=== PATIENT | female | born 1970 | race African-American/Black ===

== ENCOUNTER 2021-06-09 12:50 | Inpatient (IN) ==
[2021-06-09] MEDS ORDERED: hydrALAZINE 20 MG/1 ML VIAL IV STA (13:31)
[2021-06-09] MEDS ORDERED: ONDANSETRON 4 MG/2 ML VIAL IV STA (13:57)
[2021-06-09] MEDS ORDERED: HYDROmorphone 2 MG/1 ML VIAL IV STA (13:57)
[2021-06-09] MEDS ORDERED: GLUCAGON 1 MG VIAL IM PRN (14:02)
[2021-06-09] MEDS ORDERED: MORPHINE 2 MG/1 ML SYRINGE IV PRN (14:02)
[2021-06-09] MEDS ORDERED: DEXTROSE 50% 25 GM/50 ML VIAL IV PRN (14:02)
[2021-06-09] MEDS ORDERED: hydrALAZINE 20 MG/1 ML VIAL IV PRN (14:08)
[2021-06-09] MEDS ORDERED: PHENYTOIN ER 100 MG CAPSULE PO SCH (14:30)
[2021-06-09 14:41] LABS: Basophils % 0.5 % (0.0-0.8); Hemoglobin 7.8 GM/DL (12.0-16.0); Immature Granulocytes % 0.6 %; Immature Granulocytes Absolute 0.05 #; Lymphocytes # 0.7 10*3/uL (1.4-4.0); Lymphocytes % 9.1 % (21.3-54.2); Mean Corpuscular HGB Conc 31.2 GM/DL (32-36); Mean Corpuscular Volume 103.7 FL (87-102); Mean Platelet Volume 11.3 FL (9.6-12.0); Monocytes % 9.5 % (1.7-12.7); Neutrophils % 80.3 % (38.7-73.9); Platelet Count 162 T/CUMM (130-400); Red Blood Count 2.41 MC/CUMM (3.8-5.5); Red Cell Distribution Width 18.5 % (9.3-17.3); White Blood Count 8.1 T/CUMM (4-12)
[2021-06-09] MEDS: carvediloL 12.5 MG TABLET PO SCH ×2 (15:26→22:15)
[2021-06-09] MEDS ORDERED: SODIUM CHLORIDE 0.9% 1,000 ML IV PRN ×2 (16:04→22:21)
[2021-06-09 19:02] LABS: Hematocrit 23.1 VOL% (35.7-47.0); Hemoglobin 7.1 GM/DL (12.0-16.0)
[2021-06-09] MEDS: ONDANSETRON 4 MG/2 ML VIAL IV PRN (21:02)
[2021-06-09] MEDS: PROMETHAZINE INJ 25 MG in SODIUM CHLORIDE 0.9% 50 ML IV PRN (21:20)
[2021-06-09 21:54] LABS: Calcium 8.3 MG/DL (8.5-10.1); Osmolality,Calculated 279.8 MOS/KG (273-304); Potassium 4.5 MMOL/L (3.5-5.1)
[2021-06-09 22:05] LABS: Hematocrit 21.4 VOL% (35.7-47.0); Hemoglobin 6.6 GM/DL (12.0-16.0)
[2021-06-09] MEDS: PHENYTOIN ER 100 MG CAPSULE PO SCH (22:15)
[2021-06-09] MEDS: HYDROmorphone 2 MG/1 ML VIAL IV PRN (22:40)
[2021-06-10] MEDS: HYDROmorphone 2 MG/1 ML VIAL IV PRN ×5 (01:50→22:18)
[2021-06-10] MEDS: LEVOTHYROXINE 125 MCG TABLET PO SCH (05:42)
[2021-06-10 06:52] LABS: Basophils # 0.1 10*3/uL (0.0-0.2); Basophils % 0.3 % (0.0-0.8); Hematocrit 26.8 VOL% (35.7-47.0); Immature Granulocytes % 0.9 %; Immature Granulocytes Absolute 0.14 #; Lymphocytes # 0.7 10*3/uL (1.4-4.0); Lymphocytes % 4.8 % (21.3-54.2); Mean Corpuscular HGB Conc 32.1 GM/DL (32-36); Mean Corpuscular Volume 96.8 FL (87-102); Mean Platelet Volume 11.3 FL (9.6-12.0); Monocytes % 9.1 % (1.7-12.7); Neutrophils % 84.9 % (38.7-73.9); Platelet Count 140 T/CUMM (130-400); Red Blood Count 2.77 MC/CUMM (3.8-5.5); Red Cell Distribution Width 18.6 % (9.3-17.3)
[2021-06-10 06:54] LABS: White Blood Count 14.8 T/CUMM (4-12)
[2021-06-10 06:55] LABS: Hemoglobin 8.6 GM/DL (12.0-16.0)
[2021-06-10 07:12] LABS: Calcium 8.5 MG/DL (8.5-10.1); Potassium 4.8 MMOL/L (3.5-5.1); Thyroid Stimulating Hormone 1.7 uIU/ml (0.358-3.74)
[2021-06-10 07:21] LABS: Band Neutrophils 2 % (0-10); Lymphocytes 3 % (20-55); Segmented Neutrophils 85 % (50-85); Total Cells Counted 100
[2021-06-10 07:22] LABS: Anisocytosis 1+; Hypochromasia 1+; Microcytosis 1+
[2021-06-10 07:23] LABS: Platelet Estimate Adequate
[2021-06-10] MEDS ORDERED: NIFEdipine 10 MG CAPSULE PO PRN (08:43)
[2021-06-10] MEDS ORDERED: TERAZOSIN 2 MG CAPSULE PO SCH (09:00)
[2021-06-10] MEDS: PHENYTOIN ER 100 MG CAPSULE PO SCH ×2 (09:30→21:25)
[2021-06-10] MEDS: TERAZOSIN 1 MG CAPSULE PO SCH ×2 (09:30→21:25)
[2021-06-10] MEDS: carvediloL 12.5 MG TABLET PO SCH ×2 (09:30→21:25)
[2021-06-10] MEDS: predniSONE 5 MG TABLET PO SCH ×2 (09:31→21:43)
[2021-06-10] MEDS: PANTOPRAZOLE 40 MG TABLET PO SCH (09:31)
[2021-06-10 12:40] LABS: Basophils # 0.1 10*3/uL (0.0-0.2); Basophils % 0.4 % (0.0-0.8); Hematocrit 24.1 VOL% (35.7-47.0); Hemoglobin 7.8 GM/DL (12.0-16.0); Immature Granulocytes % 0.9 %; Immature Granulocytes Absolute 0.15 #; Lymphocytes # 0.5 10*3/uL (1.4-4.0); Lymphocytes % 3.2 % (21.3-54.2); Mean Corpuscular HGB Conc 32.4 GM/DL (32-36); Mean Corpuscular Volume 97.6 FL (87-102); Mean Platelet Volume 10.6 FL (9.6-12.0); Neutrophils % 87.5 % (38.7-73.9); Platelet Count 132 T/CUMM (130-400); Red Blood Count 2.47 MC/CUMM (3.8-5.5); Red Cell Distribution Width 18.6 % (9.3-17.3); White Blood Count 16.4 T/CUMM (4-12)
[2021-06-10] MEDS: CALCIUM ACETATE 667 MG CAPSULE PO SCH ×2 (12:56→16:06)
[2021-06-10 13:19] LABS: Anisocytosis 1+; Lymphocytes 5 % (20-55); Reactive Lymphocytes Few; Segmented Neutrophils 87 % (50-85); Total Cells Counted 100
[2021-06-10 13:20] LABS: Hypochromasia Slight; Platelet Estimate Adequate
[2021-06-10 17:08] LABS: Basophils % 0.2 % (0.0-0.8); Hematocrit 22.7 VOL% (35.7-47.0); Hemoglobin 7.2 GM/DL (12.0-16.0); Immature Granulocytes Absolute 0.17 #; Lymphocytes # 0.7 10*3/uL (1.4-4.0); Lymphocytes % 3.9 % (21.3-54.2); Mean Corpuscular HGB Conc 31.7 GM/DL (32-36); Mean Corpuscular Volume 99.1 FL (87-102); Mean Platelet Volume 10.9 FL (9.6-12.0); Monocytes % 7.1 % (1.7-12.7); Neutrophils % 87.8 % (38.7-73.9); Platelet Count 131 T/CUMM (130-400); Red Blood Count 2.29 MC/CUMM (3.8-5.5); Red Cell Distribution Width 18.6 % (9.3-17.3); White Blood Count 17.4 T/CUMM (4-12)
[2021-06-10 17:26] LABS: Lymphocytes 6 % (20-55); Segmented Neutrophils 90 % (50-85); Total Cells Counted 100
[2021-06-10 17:27] LABS: Anisocytosis 1+; Hypochromasia 1+; Platelet Estimate Adequate; Polychromasia Few
[2021-06-10 23:37] LABS: Basophils # 0.1 10*3/uL (0.0-0.2); Basophils % 0.3 % (0.0-0.8); Hematocrit 21.1 VOL% (35.7-47.0); Hemoglobin 6.6 GM/DL (12.0-16.0); Immature Granulocytes Absolute 0.15 #; Lymphocytes # 0.7 10*3/uL (1.4-4.0); Lymphocytes % 4.5 % (21.3-54.2); Mean Corpuscular HGB Conc 31.3 GM/DL (32-36); Mean Corpuscular Volume 98.1 FL (87-102); Mean Platelet Volume 10.4 FL (9.6-12.0); Monocytes % 7.4 % (1.7-12.7); Neutrophils % 86.8 % (38.7-73.9); Platelet Count 128 T/CUMM (130-400); Red Blood Count 2.15 MC/CUMM (3.8-5.5); Red Cell Distribution Width 18.5 % (9.3-17.3); White Blood Count 15.4 T/CUMM (4-12)
[2021-06-10] MEDS ORDERED: SODIUM CHLORIDE 0.9% 1,000 ML IV PRN (23:39)
[2021-06-11 01:37] LABS: Lymphocytes 5 % (20-55); Segmented Neutrophils 89 % (50-85); Total Cells Counted 100
[2021-06-11 01:38] LABS: Hypochromasia 1+; Microcytosis 1+; Platelet Estimate Normal
[2021-06-11] MEDS: LEVOTHYROXINE 125 MCG TABLET PO SCH (05:40)
[2021-06-11] MEDS: HYDROmorphone 2 MG/1 ML VIAL IV PRN ×4 (07:16→23:36)
[2021-06-11 09:06] LABS: Basophils % 0.2 % (0.0-0.8); Eosinophils % 0.1 % (0.00-10.9); Hematocrit 26.5 VOL% (35.7-47.0); Immature Granulocytes % 1.1 %; Immature Granulocytes Absolute 0.17 #; Lymphocytes # 0.5 10*3/uL (1.4-4.0); Lymphocytes % 3.4 % (21.3-54.2); Mean Corpuscular HGB Conc 31.3 GM/DL (32-36); Mean Corpuscular Volume 93.6 FL (87-102); Mean Platelet Volume 11.6 FL (9.6-12.0); Monocytes % 6.5 % (1.7-12.7); Neutrophils % 88.7 % (38.7-73.9); Platelet Count 119 T/CUMM (130-400); Red Blood Count 2.83 MC/CUMM (3.8-5.5); Red Cell Distribution Width 19.1 % (9.3-17.3); White Blood Count 15.8 T/CUMM (4-12)
[2021-06-11 09:07] LABS: Hemoglobin 8.3 GM/DL (12.0-16.0)
[2021-06-11 09:22] LABS: Hypochromasia 1+; Lymphocytes 4 % (20-55); Microcytosis 1+; Platelet Estimate Decreased; Segmented Neutrophils 91 % (50-85); Total Cells Counted 100
[2021-06-11 09:32] LABS: Albumin 2.5 G/DL (3.4-5.0); Bilirubin,Total 0.5 MG/DL (0.20-1.00); Calcium 8.2 MG/DL (8.5-10.1); Osmolality,Calculated 278.2 MOS/KG (273-304); Parathyroid Hormone Intact 246.6 PG/ML (18.4-80.1); Potassium 4.6 MMOL/L (3.5-5.1); Total Protein 6.3 G/DL (6.4-8.2)
[2021-06-11 09:33] LABS: % Iron Saturation 10.1 % (18-50); Ferritin 1297.8 ng/ml (8-252)
[2021-06-11 09:37] LABS: Folate 3.68 NG/ML (5.38-24.0); Vitamin B12 314 PG/ML (211-911)
[2021-06-11] MEDS: TERAZOSIN 1 MG CAPSULE PO SCH ×2 (10:07→20:29)
[2021-06-11] MEDS: CALCIUM ACETATE 667 MG CAPSULE PO SCH ×3 (10:07→18:03)
[2021-06-11] MEDS: predniSONE 5 MG TABLET PO SCH ×2 (10:07→20:31)
[2021-06-11] MEDS: PHENYTOIN ER 100 MG CAPSULE PO SCH ×2 (10:08→20:30)
[2021-06-11] MEDS: PANTOPRAZOLE 40 MG TABLET PO SCH (10:08)
[2021-06-11] MEDS: carvediloL 12.5 MG TABLET PO SCH ×2 (10:08→20:30)
[2021-06-11 10:14] LABS: Sedimentation Rate-Westergren 78 MM/HR (0-20)
[2021-06-11] MEDS ORDERED: SODIUM CHLORIDE 0.9% 1,000 ML IV PRN (10:39)
[2021-06-11] MEDS: ONDANSETRON 4 MG/2 ML VIAL IV PRN (12:17)
[2021-06-11] MEDS ORDERED: EPOETIN ALFA-EPBX 10,000 UNIT/ML VIAL IV PRN (12:48)
[2021-06-11 14:59] LABS: Basophils % 0.2 % (0.0-0.8); Hematocrit 25.7 VOL% (35.7-47.0); Hemoglobin 8.3 GM/DL (12.0-16.0); Immature Granulocytes % 0.8 %; Immature Granulocytes Absolute 0.11 #; Lymphocytes # 0.5 10*3/uL (1.4-4.0); Lymphocytes % 3.4 % (21.3-54.2); Mean Corpuscular HGB Conc 32.3 GM/DL (32-36); Mean Corpuscular Volume 92.4 FL (87-102); Mean Platelet Volume 10.4 FL (9.6-12.0); Neutrophils % 91.6 % (38.7-73.9); Platelet Count 132 T/CUMM (130-400); Red Blood Count 2.78 MC/CUMM (3.8-5.5); Red Cell Distribution Width 19.2 % (9.3-17.3); White Blood Count 13.4 T/CUMM (4-12)
[2021-06-11 15:29] LABS: Band Neutrophils 1 % (0-10); Lymphocytes 2 % (20-55); Segmented Neutrophils 97 % (50-85); Total Cells Counted 100
[2021-06-11 15:30] LABS: Anisocytosis 1+; Macrocytosis 1+; Microcytosis 1+; Platelet Estimate Adequate; Polychromasia Slight
[2021-06-11 19:29] LABS: Basophils % 0.1 % (0.0-0.8); Hematocrit 26.7 VOL% (35.7-47.0); Hemoglobin 8.5 GM/DL (12.0-16.0); Immature Granulocytes % 0.9 %; Immature Granulocytes Absolute 0.13 #; Lymphocytes # 0.6 10*3/uL (1.4-4.0); Lymphocytes % 3.9 % (21.3-54.2); Mean Corpuscular HGB Conc 31.8 GM/DL (32-36); Mean Corpuscular Volume 93.4 FL (87-102); Mean Platelet Volume 10.1 FL (9.6-12.0); Neutrophils % 90.1 % (38.7-73.9); Platelet Count 125 T/CUMM (130-400); Red Blood Count 2.86 MC/CUMM (3.8-5.5); Red Cell Distribution Width 19.5 % (9.3-17.3)
[2021-06-12] MEDS: HYDROmorphone 2 MG/1 ML VIAL IV PRN ×3 (05:45→20:50)
[2021-06-12] MEDS: LEVOTHYROXINE 125 MCG TABLET PO SCH (05:57)
[2021-06-12 06:09] LABS: Albumin 2.4 G/DL (3.4-5.0); Bilirubin,Total 0.5 MG/DL (0.20-1.00); Calcium 8.6 MG/DL (8.5-10.1); Osmolality,Calculated 273.1 MOS/KG (273-304); Potassium 4.3 MMOL/L (3.5-5.1); Total Protein 6.6 G/DL (6.4-8.2)
[2021-06-12] MEDS: carvediloL 12.5 MG TABLET PO SCH (09:15)
[2021-06-12] MEDS: PHENYTOIN ER 100 MG CAPSULE PO SCH (09:16)
[2021-06-12] MEDS: CALCIUM ACETATE 667 MG CAPSULE PO SCH ×3 (09:37→18:39)
[2021-06-12] MEDS: TERAZOSIN 1 MG CAPSULE PO SCH (09:38)
[2021-06-12] MEDS: PANTOPRAZOLE 40 MG TABLET PO SCH (09:38)
[2021-06-12] MEDS: predniSONE 5 MG TABLET PO SCH (09:38)
[2021-06-12 09:49] LABS: Hemoglobin A1 (Alkaline) 97.5 % (96.5-98.5); Hemoglobin A2 (Alkaline) 2.5 % (1.5-3.5)
[2021-06-12] MEDS ORDERED: MIDAZOLAM 2 MG/2 ML VIAL ONE (12:48)
[2021-06-12] MEDS ORDERED: fentaNYL 100 MCG/2 ML VIAL ONE (12:48)
[2021-06-12] MEDS ORDERED: ROPIVACAINE 0.5% 30 ML VIAL ONE ×2 (12:50→14:55)
[2021-06-12] MEDS ORDERED: LIDOCAINE 1% 5 ML VIAL ONE (12:50)
[2021-06-12] MEDS ORDERED: PHENYLEPHRINE DRIP 20 MG/250 ML PREMIX IV ONE (12:50)
[2021-06-12] MEDS ORDERED: SODIUM CHLORIDE 0.9% 250 ML IV SCH (13:30)
[2021-06-12] MEDS ORDERED: DEXMEDETOMIDINE 200 MCG/2 ML VIAL ONE (14:07)
[2021-06-12] MEDS ORDERED: ALBUMIN 5% 12.5 GM/250 ML VIAL IV ONE (14:07)
[2021-06-12] MEDS ORDERED: CALCIUM CHLORIDE 1,000 MG/10 ML VIAL IV ONE ×2 (14:07→17:07)
[2021-06-12] MEDS ORDERED: KETAMINE 500 MG/10 ML VIAL ONE (14:24)
[2021-06-12] MEDS ORDERED: ALBUTEROL INHALER 18 GM INH ONE ×2 (14:25→14:26)
[2021-06-12] MEDS ORDERED: CLINDAMYCIN INJ 600 MG/50 ML PREMIX IV ONE (14:53)
[2021-06-12] MEDS ORDERED: DESMOPRESSIN 4 MCG/1 ML AMP IV ONE (15:00)
[2021-06-12] MEDS ORDERED: SEVOFLURANE 1 UNIT/15 MINUTE INH ONE ×3 (15:34→17:44)
[2021-06-12] MEDS ORDERED: ROCURONIUM 50 MG/5 ML VIAL IV ONE (15:57)
[2021-06-12 16:43] LABS: ABG HCO3 25.3 MMOL/L (20-26); ABG Oxygen Saturation 97.9 % (95-100); ABG PCO2 33.9 MM HG (35-48); ABG PO2 104.5 MM HG (80-95); ABG TCO2 26.3 MMOL/L (23-27); Glucose Heart Surgery 109 MG/DL (74-106); Hemoglobin Heart Surgery 8.3 G/DL (12.0-16.0); Potassium Heart/CVR 5.2 MMOL/L (3.5-5.1); Sodium Heart/CVR 130 MMOL/L (135-145)
[2021-06-12] MEDS ORDERED: NEOSTIGMINE 10 MG/10 ML VIAL ONE (17:25)
[2021-06-12] MEDS ORDERED: GLYCOPYRROLATE 0.4 MG/2 ML VIAL ONE (17:25)
[2021-06-12] MEDS ORDERED: HYDROCORTISONE 100 MG VIAL ONE (18:29)
[2021-06-12] MEDS ORDERED: LIDOCAINE 2% 5 ML VIAL ONE (18:29)
[2021-06-12] MEDS ORDERED: propofoL 200 MG/20 ML VIAL IV ONE (18:29)
[2021-06-12] MEDS ORDERED: ETOMIDATE 40 MG/20 ML VIAL IV ONE (18:29)
[2021-06-12 18:30] LABS: Basophils % 0.2 % (0.0-0.8); Eosinophils % 0.2 % (0.00-10.9); Hematocrit 27.9 VOL% (35.7-47.0); Hemoglobin 8.9 GM/DL (12.0-16.0); Immature Granulocytes % 0.8 %; Immature Granulocytes Absolute 0.11 #; Lymphocytes # 0.3 10*3/uL (1.4-4.0); Lymphocytes % 2.4 % (21.3-54.2); Mean Corpuscular HGB Conc 31.9 GM/DL (32-36); Mean Corpuscular Volume 94.6 FL (87-102); Mean Platelet Volume 10.3 FL (9.6-12.0); Monocytes % 4.6 % (1.7-12.7); Neutrophils % 91.8 % (38.7-73.9); Platelet Count 140 T/CUMM (130-400); Red Blood Count 2.95 MC/CUMM (3.8-5.5); Red Cell Distribution Width 18.4 % (9.3-17.3); White Blood Count 13.1 T/CUMM (4-12)
[2021-06-12 18:41] LABS: Calcium 9.6 MG/DL (8.5-10.1); Osmolality,Calculated 268.8 MOS/KG (273-304); Potassium 5.5 MMOL/L (3.5-5.1)
[2021-06-12] MEDS ORDERED: diphenhydrAMINE CAP 25 MG CAPSULE PO PRN (18:45)
[2021-06-12] MEDS ORDERED: diphenhydrAMINE 50 MG/1 ML VIAL IV PRN (18:45)
[2021-06-12] MEDS ORDERED: ONDANSETRON 4 MG/2 ML VIAL IV PRN ×2 (18:45→18:52)
[2021-06-12] MEDS ORDERED: HYDROmorphone 2 MG/1 ML VIAL IV PRN (18:52)
[2021-06-12] MEDS ORDERED: KETOROLAC 30 MG/1 ML VIAL ONE (18:57)
[2021-06-12] MEDS ORDERED: ACETAMINOPHEN INJ 1,000 MG/100 ML VIAL IV ONE ×2 (18:57→19:06)
[2021-06-12 20:10] LABS: Anisocytosis 3+; Hypochromasia 3+; Lymphocytes 2 % (20-55); Microcytosis 3+; Segmented Neutrophils 97 % (50-85); Total Cells Counted 100
[2021-06-13] MEDS: HYDROmorphone 2 MG/1 ML VIAL IV PRN ×3 (00:56→10:07)
[2021-06-13] MEDS: PHENYTOIN ER 100 MG CAPSULE PO SCH ×3 (01:09→21:43)
[2021-06-13] MEDS: carvediloL 12.5 MG TABLET PO SCH ×3 (02:20→21:44)
[2021-06-13] MEDS: TERAZOSIN 1 MG CAPSULE PO SCH ×3 (02:21→21:53)
[2021-06-13] MEDS: predniSONE 5 MG TABLET PO SCH ×4 (02:21→21:54)
[2021-06-13 04:37] LABS: Calcium 8.9 MG/DL (8.5-10.1); Osmolality,Calculated 275.5 MOS/KG (273-304); Potassium 5.7 MMOL/L (3.5-5.1)
[2021-06-13] MEDS: LEVOTHYROXINE 125 MCG TABLET PO SCH (06:46)
[2021-06-13 08:08] LABS: Basophils % 0.3 % (0.0-0.8); Eosinophils % 0.1 % (0.00-10.9); Hematocrit 27.5 VOL% (35.7-47.0); Hemoglobin 8.3 GM/DL (12.0-16.0); Immature Granulocytes % 0.8 %; Immature Granulocytes Absolute 0.08 #; Lymphocytes # 0.5 10*3/uL (1.4-4.0); Lymphocytes % 4.9 % (21.3-54.2); Mean Corpuscular HGB Conc 30.2 GM/DL (32-36); Mean Corpuscular Volume 98.2 FL (87-102); Monocytes % 8.9 % (1.7-12.7); Platelet Count 161 T/CUMM (130-400); Red Cell Distribution Width 18.5 % (9.3-17.3); White Blood Count 10.5 T/CUMM (4-12)
[2021-06-13 08:28] LABS: Hypochromasia 1+; Lymphocytes 5 % (20-55); Microcytosis 1+; Platelet Estimate Adequate; Segmented Neutrophils 89 % (50-85); Total Cells Counted 100
[2021-06-13] MEDS: CALCIUM ACETATE 667 MG CAPSULE PO SCH ×4 (08:39→16:49)
[2021-06-13] MEDS: PANTOPRAZOLE 40 MG TABLET PO SCH ×2 (08:39→09:59)
[2021-06-13] MEDS: ALVIMOPAN 12 MG CAPSULE PO SCH ×2 (10:07→21:43)
[2021-06-13] MEDS: ONDANSETRON 4 MG/2 ML VIAL IV PRN ×2 (13:11→23:38)
[2021-06-13] MEDS ORDERED: HYDROmorphone 2 MG/1 ML VIAL IV PRN (13:52)
[2021-06-13] MEDS ORDERED: NALOXONE 0.4 MG/ML VIAL IV PRN (17:28)
[2021-06-13] MEDS: HYDROmorphone PCA 30 MG/30 ML SYRINGE IV SCH (18:40)
[2021-06-13] MEDS ORDERED: GABAPENTIN 100 MG CAPSULE PO SCH (21:00)
[2021-06-14] MEDS: LEVOTHYROXINE 125 MCG TABLET PO SCH (05:53)
[2021-06-14 06:21] LABS: Basophils % 0.1 % (0.0-0.8); Hematocrit 26.8 VOL% (35.7-47.0); Hemoglobin 8.4 GM/DL (12.0-16.0); Immature Granulocytes % 0.7 %; Immature Granulocytes Absolute 0.07 #; Lymphocytes # 0.4 10*3/uL (1.4-4.0); Lymphocytes % 3.7 % (21.3-54.2); Mean Corpuscular HGB Conc 31.3 GM/DL (32-36); Mean Corpuscular Volume 95.4 FL (87-102); Mean Platelet Volume 10.4 FL (9.6-12.0); NRBC # 0.02 10*3/uL; Neutrophils % 87.5 % (38.7-73.9); Platelet Count 184 T/CUMM (130-400); Red Blood Count 2.81 MC/CUMM (3.8-5.5); Red Cell Distribution Width 18.1 % (9.3-17.3); White Blood Count 9.4 T/CUMM (4-12)
[2021-06-14 06:40] LABS: Calcium 8.7 MG/DL (8.5-10.1); Osmolality,Calculated 281.7 MOS/KG (273-304)
[2021-06-14 06:41] LABS: Hypochromasia 1+; Lymphocytes 1 % (20-55); Microcytosis 1+; Platelet Estimate Adequate; Segmented Neutrophils 96 % (50-85); Total Cells Counted 100
[2021-06-14] MEDS: TERAZOSIN 1 MG CAPSULE PO SCH (08:38)
[2021-06-14] MEDS: CALCIUM ACETATE 667 MG CAPSULE PO SCH (08:38)
[2021-06-14] MEDS: PANTOPRAZOLE 40 MG TABLET PO SCH (08:38)
[2021-06-14] MEDS: DEXTROSE 5% NACL 0.45% 1,000 ML IV SCH (10:30)
[2021-06-14] MEDS: PROMETHAZINE INJ 25 MG in SODIUM CHLORIDE 0.9% 50 ML IV PRN (11:19)
[2021-06-14] MEDS: PHENYTOIN ER 100 MG CAPSULE PO SCH (11:52)
[2021-06-14] MEDS: ALVIMOPAN 12 MG CAPSULE PO SCH (11:52)
[2021-06-14] MEDS: predniSONE 5 MG TABLET PO SCH (11:52)
[2021-06-14] MEDS: carvediloL 12.5 MG TABLET PO SCH ×2 (11:53→20:35)
[2021-06-14] MEDS ORDERED: cloNIDine 0.2 MG/24 HR PATCH TRANSDERM SCH (15:00)
[2021-06-14] MEDS: PHENYTOIN INJ 300 MG in SODIUM CHLORIDE 0.9% 100 ML IV SCH (15:46)
[2021-06-14] MEDS: HYDROmorphone PCA 30 MG/30 ML SYRINGE IV SCH (18:29)
[2021-06-14] MEDS: HYDROCORTISONE 100 MG VIAL IV SCH (20:35)
[2021-06-14] MEDS ORDERED: PHENYTOIN 100 MG/2 ML VIAL IV SCH (21:00)
[2021-06-14] MEDS ORDERED: BISACODYL 10 MG SUPP RECTAL ONE (22:00)
[2021-06-15] MEDS: PHENYTOIN INJ 300 MG in SODIUM CHLORIDE 0.9% 100 ML IV SCH (05:25)
[2021-06-15 05:31] LABS: Osmolality,Calculated 280.1 MOS/KG (273-304); Potassium 4.6 MMOL/L (3.5-5.1)
[2021-06-15] MEDS: LEVOTHYROXINE 100 MCG VIAL IV SCH (06:14)
[2021-06-15] MEDS ORDERED: oxyCODONE/ACETAMINOPHEN 5-325 MG TABLET PO PRN ×2 (07:17→13:20)
[2021-06-15] MEDS ORDERED: BISACODYL 10 MG SUPP RECTAL ONE (07:30)
[2021-06-15] MEDS: carvediloL 12.5 MG TABLET PO SCH ×2 (08:43→22:27)
[2021-06-15] MEDS: PANTOPRAZOLE 40 MG VIAL IV SCH (08:44)
[2021-06-15] MEDS: HYDROCORTISONE 100 MG VIAL IV SCH ×2 (08:44→22:28)
[2021-06-15] MEDS: DOCUSATE SODIUM 100 MG CAPSULE PO SCH ×2 (14:30→22:27)
[2021-06-15] MEDS: oxyCODONE/ACETAMINOPHEN 5-325 MG TABLET PO PRN ×2 (14:30→19:27)
[2021-06-15] MEDS: POLYETHYLENE GLYCOL POWDER 17 GM PACK PO SCH (14:31)
[2021-06-15] MEDS: LACTULOSE 20 GM/30 ML UDCUP PO SCH ×2 (14:31→22:37)
[2021-06-15] MEDS: PHENYTOIN INJ 300 MG in SODIUM CHLORIDE 0.9% 50 ML IV SCH (16:03)
[2021-06-16] MEDS: PHENYTOIN INJ 300 MG in SODIUM CHLORIDE 0.9% 50 ML IV SCH (03:52)
[2021-06-16] MEDS: LEVOTHYROXINE 100 MCG VIAL IV SCH (06:28)
[2021-06-16] MEDS ORDERED: LINACLOTIDE 145 MCG CAPSULE PO SCH (07:30)
[2021-06-16 07:59] LABS: Calcium 8.4 MG/DL (8.5-10.1); Potassium 3.6 MMOL/L (3.5-5.1)
[2021-06-16] MEDS: POLYETHYLENE GLYCOL POWDER 17 GM PACK PO SCH (08:20)
[2021-06-16] MEDS: DOCUSATE SODIUM 100 MG CAPSULE PO SCH (08:20)
[2021-06-16] MEDS: carvediloL 12.5 MG TABLET PO SCH (08:20)
[2021-06-16] MEDS: HYDROCORTISONE 100 MG VIAL IV SCH (08:21)
[2021-06-16] MEDS: PANTOPRAZOLE 40 MG VIAL IV SCH (08:21)
[2021-06-16] MEDS ORDERED: SODIUM PHOSPHATE ENEMA 133 ML BOTTLE RECTAL ONE (09:05)
[2021-06-16] MEDS: LACTULOSE 20 GM/30 ML UDCUP PO SCH (10:27)
[2021-06-16] MEDS: DEXTROSE 5% NACL 0.45% 1,000 ML IV SCH (10:30)
[2021-06-16 12:11] VITALS: BP 153/84
== END 2021-06-16 13:01 | disposition home or self-care (01) | DRG 981 ==
LOC: EDBD → EDUNIT# → N.ED 12:50 → N.EDINP 14:02 → SUATTDRO 14:02 → N.ICU 17:41 → N.5E 06-10 13:40
PROVIDERS: ADMIT Internal Medicine; ATTEND Phlebology

== ENCOUNTER 2022-11-05 11:10 | Inpatient (IN) ==
[2022-11-05] MEDS ORDERED: HEPARIN LOCK FLUSH 500 UNIT/5 ML SYRINGE IV ONE (12:24)
[2022-11-05 14:23] LABS: Basophils % 0.3 % (0.0-0.8); Hematocrit 18.6 VOL% (35.7-47.0); Immature Granulocytes % 2.1 %; Immature Granulocytes Absolute 0.08 #; Lymphocytes # 0.8 10*3/uL (1.4-4.0); Lymphocytes % 21.4 % (21.3-54.2); Mean Corpuscular HGB Conc 30.1 GM/DL (32-36); Mean Platelet Volume 10.9 FL (9.6-12.0); Monocytes # 0.2 10*3/uL (0.11-0.8); Monocytes % 5.5 % (1.7-12.7); Neutrophils % 70.7 % (38.7-73.9); Platelet Count 141 T/CUMM (130-400); Red Blood Count 1.86 MC/CUMM (3.8-5.5); White Blood Count 3.8 T/CUMM (4-12)
[2022-11-05 14:33] LABS: Hemoglobin 5.6 GM/DL (12.0-16.0)
[2022-11-05 14:41] LABS: PT Patient Result 11.4 SECS (10.1-12.1)
[2022-11-05 14:57] LABS: Albumin 2.3 G/DL (3.4-5.0); Bilirubin,Total 0.5 MG/DL (0.20-1.00); Calcium 7.9 MG/DL (8.5-10.1); Osmolality,Calculated 272.4 MOS/KG (273-304); Potassium 3.7 MMOL/L (3.5-5.1); Thyroid Stimulating Hormone 0.923 uIU/ml (0.358-3.74); Total Protein 6.4 G/DL (6.4-8.2)
[2022-11-05] MEDS ORDERED: PIPERACILLIN/TAZOBACTAM 3,375 MG in SODIUM CHLORIDE 0.9% 100 ML IV STA (15:25)
[2022-11-05] MEDS ORDERED: ONDANSETRON 4 MG/2 ML VIAL IV PRN (16:15)
[2022-11-05] MEDS ORDERED: SODIUM CHLORIDE 0.9% 1,000 ML IV PRN (16:31)
[2022-11-05] MEDS: ALBUTEROL/IPRATROPIUM 3 ML NEB RESP TX SCH ×2 (20:22→23:55)
[2022-11-05] MEDS ORDERED: PHENYTOIN ER 100 MG CAPSULE PO SCH (21:00)
[2022-11-06 03:07] LABS: Basophils % 0.4 % (0.0-0.8); Eosinophils % 0.2 % (0.00-10.9); Hematocrit 21.5 VOL% (35.7-47.0); Hemoglobin 6.7 GM/DL (12.0-16.0); Immature Granulocytes % 2.8 %; Immature Granulocytes Absolute 0.13 #; Lymphocytes % 21.4 % (21.3-54.2); Mean Corpuscular HGB Conc 31.2 GM/DL (32-36); Mean Corpuscular Volume 96.4 FL (87-102); Mean Platelet Volume 11.2 FL (9.6-12.0); Monocytes # 0.2 10*3/uL (0.11-0.8); Monocytes % 4.8 % (1.7-12.7); Neutrophils % 70.4 % (38.7-73.9); Platelet Count 142 T/CUMM (130-400); Red Blood Count 2.23 MC/CUMM (3.8-5.5); Red Cell Distribution Width 18.9 % (9.3-17.3); White Blood Count 4.6 T/CUMM (4-12)
[2022-11-06] MEDS: ALBUTEROL/IPRATROPIUM 3 ML NEB RESP TX SCH ×6 (03:15→23:06)
[2022-11-06 03:22] LABS: Calcium 7.7 MG/DL (8.5-10.1); Osmolality,Calculated 274.4 MOS/KG (273-304); Potassium 3.9 MMOL/L (3.5-5.1)
[2022-11-06] MEDS: LEVOTHYROXINE 125 MCG TABLET PO SCH (05:56)
[2022-11-06] MEDS ORDERED: EPOETIN ALFA-EPBX 10,000 UNIT/ML VIAL IV PRN ×2 (08:44→08:47)
[2022-11-06] MEDS: PANTOPRAZOLE 40 MG TABLET PO SCH (10:21)
[2022-11-06] MEDS: PHENYTOIN ER 100 MG CAPSULE PO SCH ×2 (10:22→20:27)
[2022-11-06] MEDS ORDERED: SODIUM CHLORIDE 0.9% 1,000 ML IV PRN (12:36)
[2022-11-06 12:38] LABS: Hepatitis B Core IgM Quant 0.08 Index; Hepatitis B Surface Ag Quant < 0.10 Index; Hepatitis B Surface Ag Result Non-Reactive (NonReactive); Hepatitis C Virus Ab Quant 0.06 Index; Hepatitis C Virus Ab Result Non-Reactive (NonReactive)
[2022-11-06] MEDS: PIPERACILLIN/TAZOBACTAM 3,375 MG in SODIUM CHLORIDE 0.9% 100 ML IV SCH ×2 (16:14→16:21)
[2022-11-07] MEDS: ALBUTEROL/IPRATROPIUM 3 ML NEB RESP TX SCH ×6 (03:00→22:10)
[2022-11-07] MEDS: PIPERACILLIN/TAZOBACTAM 3,375 MG in SODIUM CHLORIDE 0.9% 100 ML IV SCH (04:41)
[2022-11-07] MEDS: LEVOTHYROXINE 125 MCG TABLET PO SCH ×2 (04:42)
[2022-11-07 05:17] LABS: Basophils % 0.2 % (0.0-0.8); Eosinophils % 0.2 % (0.00-10.9); Hematocrit 27.5 VOL% (35.7-47.0); Hemoglobin 8.6 GM/DL (12.0-16.0); Immature Granulocytes % 3.1 %; Immature Granulocytes Absolute 0.15 #; Lymphocytes # 0.9 10*3/uL (1.4-4.0); Lymphocytes % 18.7 % (21.3-54.2); Mean Corpuscular HGB Conc 31.3 GM/DL (32-36); Mean Corpuscular Volume 92.6 FL (87-102); Monocytes # 0.3 10*3/uL (0.11-0.8); Monocytes % 5.8 % (1.7-12.7); NRBC # 0.02 10*3/uL; Platelet Count 146 T/CUMM (130-400); Red Blood Count 2.97 MC/CUMM (3.8-5.5); Red Cell Distribution Width 19.2 % (9.3-17.3); White Blood Count 4.8 T/CUMM (4-12)
[2022-11-07 05:48] LABS: Potassium 3.4 MMOL/L (3.5-5.1)
[2022-11-07] MEDS: PANTOPRAZOLE 40 MG TABLET PO SCH (09:34)
[2022-11-07] MEDS: PHENYTOIN ER 100 MG CAPSULE PO SCH ×2 (09:35→21:48)
[2022-11-07] MEDS: AZITHROMYCIN 250 MG TABLET PO SCH (15:08)
[2022-11-07] MEDS: CEFDINIR 300 MG CAPSULE PO SCH (21:48)
[2022-11-08] MEDS: ALBUTEROL/IPRATROPIUM 3 ML NEB RESP TX SCH ×4 (03:10→14:52)
[2022-11-08] MEDS: LEVOTHYROXINE 125 MCG TABLET PO SCH (06:05)
[2022-11-08 08:03] LABS: Basophils % 0.5 % (0.0-0.8); Eosinophils % 0.2 % (0.00-10.9); Hematocrit 28.4 VOL% (35.7-47.0); Hemoglobin 9.1 GM/DL (12.0-16.0); Immature Granulocytes % 3.4 %; Immature Granulocytes Absolute 0.19 #; Lymphocytes # 0.9 10*3/uL (1.4-4.0); Mean Corpuscular Volume 91.9 FL (87-102); Mean Platelet Volume 10.6 FL (9.6-12.0); Monocytes # 0.3 10*3/uL (0.11-0.8); Monocytes % 5.9 % (1.7-12.7); NRBC # 0.02 10*3/uL; Platelet Count 182 T/CUMM (130-400); Red Blood Count 3.09 MC/CUMM (3.8-5.5); Red Cell Distribution Width 18.7 % (9.3-17.3); White Blood Count 5.6 T/CUMM (4-12)
[2022-11-08 08:24] VITALS: BP 128/71
[2022-11-08 08:25] LABS: Calcium 8.3 MG/DL (8.5-10.1); Osmolality,Calculated 276.8 MOS/KG (273-304); Potassium 3.8 MMOL/L (3.5-5.1)
[2022-11-08 08:35] LABS: Band Neutrophils 3 % (0-10); Lymphocytes 18 % (20-55); Nucleated Red Blood Cells 3 /100 WBC (0-5); Platelet Estimate Normal; Total Cells Counted 100
[2022-11-08 08:36] LABS: Anisocytosis 2+; Macrocytosis Slight; Tear Drop Cells Few
[2022-11-08] MEDS: CEFDINIR 300 MG CAPSULE PO SCH (09:25)
[2022-11-08] MEDS: PANTOPRAZOLE 40 MG TABLET PO SCH (09:26)
[2022-11-08] MEDS: AZITHROMYCIN 250 MG TABLET PO SCH (09:26)
[2022-11-08] MEDS: PHENYTOIN ER 100 MG CAPSULE PO SCH (09:27)
== END 2022-11-08 14:54 | disposition home or self-care (01) | DRG 682 ==
LOC: N.ED 11:10 → SUATTDRO 15:55 → N.EDINP 15:55 → N.2E 17:03
PROVIDERS: ADMIT Internal Medicine; ATTEND Internal Medicine